=== PATIENT | male | born 1985 | race Caucasian/White ===

== ENCOUNTER → 2024-08-03 | Outpatient (CLI) | payer MEDICAID, SELFPAY ==
--- NOTE | 2024-08-03 12:54 | XR_ITS ---
Examination: MRI lumbar spine without contrast Date and time of exam: August 03, 2024 1333 hours INDICATIONS: Low back pain radiating down the lower leg 6 months Technique: Multiple MRI axial and sagittal sections lumbar spine. Sagittal T2-weighted images, TR 3500, TE 118 T1 weighted transverse sections, TR 688 T8.5, T2-weighted sagittal sections T1 weighted sagittal sections TR 621, TE 30 T2 axial sections, TR 4, 190, TE 84. Findings: Grade 1 anterolisthesis L5 on L4 No lumbar fracture Mild to moderate disc narrowing L4-L5, L5-S1 L5-S1 7 mm central lumbar disc bulge displacing both S1 nerve roots L4-L5 4 mm central lumbar disc bulge More cephalad levels unremarkable IMPRESSION: L5-S1 7 mm central lumbar disc bulge displacing both S1 nerve roots L4-L5 4 mm central lumbar disc bulge
== END | disposition home or self-care (01) ==
PROVIDERS: PCP Family Medicine; Referring Provider Nurse Practitioner Family; Visit Provider Nurse Practitioner Family
DX: M51.369 Other intervertebral disc degeneration, lumbar region without mention of lumbar back pain or lower extremity pain (principal); M51.379 Other intervertebral disc degeneration, lumbosacral region without mention of lumbar back pain or lower extremity pain
CPT/HCPCS: 72148